=== PATIENT | female | born 1970 | race Hispanic/Latino ===

== ENCOUNTER 2023-04-11 07:31 | Outpatient (CLI) | payer BC | END 2023-04-11 07:32 | disposition home or self-care (01) | LOC: BICCT 07:31 | PROVIDERS: ATTEND Physician Assistant | DX: R93.421 Abnormal radiologic findings on diagnostic imaging of right kidney (principal); K76.0 Fatty (change of) liver, not elsewhere classified | CPT/HCPCS: 74160; 82565 ==